=== PATIENT | male | born 1955 | race Caucasian/White ===

== ENCOUNTER 2021-02-21 20:44 | Inpatient (IN) ==
--- NOTE | 2021-02-21 21:12 | Emergency Department Note ---
SOB HPI General Chief Complaint: Shortness of Breath/Dyspnea Stated Complaint: SOB Time Seen by Provider: 02/21/21 20:57 Source: patient and EMS Mode of arrival: EMS Limitations: no limitations History of Present Illness HPI Narrative: 65-year-old male arrives via EMS chief and breath.Patient states he has had 12 days of fever chills body aches cough headache ; States he went to [facility] emergency department a week ago and was told he most likely had COVID-19 but was not tested. Patient has not felt better he saw a telemedicine doctor and was prescribed ivermectin couple days ago. Patient continues to feel very short of breath fatigue and very sleepy with no energy.EMS arrived the patient's was found to be hypoxic.Prior Denies history of heart or lung disease no hypertension or hyperlipidemia no history of thromboembolism.Patient was exposed to a family member that did test positive to coronavirus a few days prior to him becoming ill. Related Data Home Medications Medication Instructions Recorded Confirmed Zinc 02/21/21 bupropion HCl 150 mg PO QAM 02/21/21 02/21/21 ivermectin 02/21/21 Allergies Allergy/AdvReac Type Severity Reaction Status Date / Time Amoxicillin AdvReac Intermediate Verified 02/21/21 20:51 Review of Systems ROS ROS Narrative: Narrative: All systems ED: reviewed and negative except as stated. Constitutional: Reports as per HPI, fever, chills, weakness and sweats Eyes: Denies vision change Cardiovascular: Denies chest pain Respiratory: Reports shortness of breath and cough Gastrointestinal: Denies abdominal pain, vomiting and diarrhea Genitourinary: Denies dysuria, frequency, urgency and hematuria Musculoskeletal: Denies back pain and joint pain Integumentary: Denies rash Neurological: Denies headache and dizziness Psychiatric: Denies anxiety, suicidal thoughts and homicidal thoughts Endocrine: Denies polydipsia and polyuria Hematological/Lymphatic: Denies easy bleeding and easy bruising PFSH Narrative Patient History Narrative: Narrative: Medical/Surgical/Family History All Active Problems (Updated 02/21/21 @ 23:38 by Balbir Cantrell MD) COVID-19 (Acute) Hypoxemia (Acute) Social History Smoking Status: Never smoker Exam Narrative Narrative: Constitutional: Awake alert no acute distress well-nourished well- developed HEENT: Normocephalic, atraumatic PERRLA, EOMI, oral mucosa moist, pharynx clear, Neck: Supple, no lymphadenopathy, no JVD Lungs: Breathing unlabored, lungs clear Cardiac: Regular rate and rhythm, normal distal pulses, GI: Soft nontender nondistended no guarding no rebound Musculoskeletal: No tenderness, no deformities, no edema, full range of motion Neuro: Awake alert, cranial nerves II through XII grossly intact, no focal motor or sensory deficits Psychiatric: Normal mood and affect Skin: Warm dry no rash, cap refill less than 2 seconds General Limitations: no limitations Course Reevaluation(s) Reevaluation #1: Patient feels better maintaining oxygen saturation in the low 90s on 5 L. Discussed all ED results and recommendation for admission and he is agreeable. Time: 23:25 Consultations Consultation #1: This discussed with Dr. Cole, hospitalist who agrees to admit the patient to the hospital and he will see him in the morning. Time: 23:31 Vital Signs Vital signs: Vital Signs Temperature 97.6 F 02/21/21 20:45 Pulse Rate 70 02/21/21 20:45 Respiratory Rate 20 02/21/21 20:45 Blood Pressure 115/65 02/21/21 20:45 Pulse Oximetry (%) 90 02/21/21 20:45 Temperature 97.6 F 02/21/21 20:45 Pulse Rate 68 02/21/21 23:17 Respiratory Rate 20 02/21/21 20:45 Blood Pressure 110/61 02/21/21 23:17 Pulse Oximetry (%) 91 02/21/21 23:17 [facility] MDM Narrative Medical decision making narrative: 65-year-old male with shortness of breath fatigue worsening over the last 12 days. Is positive for COVID-19. CT chest with contrastshows bilateral infiltrates and patient is hypoxic. No evidence of pulmonary embolism. Patient will be admitted for further evaluation and treatment.Case discussed with hospitalist Dr. Cole who agrees to admit patient. He request patient be started on remdesivir and Decadron. Differential Diagnosis Differential Diagnosis: COVID-19 infection, pneumonia, pulmonary embolism, CHF Lab Data Lab results reviewed: Yes I reviewed the patient's lab results. Result diagrams: 02/21/21 21:28 02/21/21 21:27 Labs: Lab Results 02/21/21 02/21/21 02/21/21 Range/Units 21:27 21:27 21:27 WBC (4.5-11.0) K/mcL RBC (4.50-5.90) M/mcL Hgb (13.5-16.5) g/dL Hct (41.0-55.0) % MCV (80.0-100.0) fL MCH (26.0-34.0) pg MCHC (31.0-36.0) g/dL RDW (11.5-14.5) % Plt Count (140-440) K/mcL MPV (7.4-10.4) fL Seg Neutrophils % (38-78) % Band Neutrophils % (0-10) % Lymphocytes % (15-49) % Platelet Estimate (Normal) RBC Morphology (Normal) PT (11.9-14.5) sec INR (0.9-1.1) APTT (20.0-37.0) sec VBG Lactic Acid 2.0 (0.5-2.0) mmol/L POC Creatinine 1.3 H (0.6-1.2) mg/dL Troponin T < 0.01 (<0.03) ng/mL Procalcitonin (<0.10) ng/mL 02/21/21 02/21/21 02/21/21 Range/Units :27 21: 21:28 WBC 11.3 H (4.5-11.0) K/mcL RBC 4.59 (4.50-5.90) M/mcL Hgb 15.0 (13.5-16.5) g/dL Hct 44.9 (41.0-55.0) % MCV 97.8 (80.0-100.0) fL MCH 32.7 (26.0-34.0) pg MCHC 33.4 (31.0-36.0) g/dL RDW 12.7 (11.5-14.5) % Plt Count 134 L (140-440) K/mcL MPV 10.9 H (7.4-10.4) fL Seg Neutrophils % 93 H (38-78) % Band Neutrophils % 1 (0-10) % Lymphocytes % 6 L (15-49) % Platelet Estimate Decreased A (Normal) RBC Morphology Normal (Normal) PT 13.9 (11.9-14.5) sec INR 1.0 (0.9-1.1) APTT 32.9 (20.0-37.0) sec VBG Lactic Acid (0.5-2.0) mmol/L POC Creatinine (0.6-1.2) mg/dL Troponin T (<0.03) ng/mL Procalcitonin 0.88 H (<0.10) ng/mL ED POC Tests ED POC Tests: ABAD - SARS Antigen Positive Radiology Data Radiology results reviewed: Yes I reviewed the patient's radiology results. Radiology results narrative: CTA chest with contrast shows scattered infiltrates throughout both lower lung field and a portion of the posterior upper lungs, no effusion or pneumothorax, no pulmonary arterial emboli, there is fatty infiltration of the liver noted. EKG Data EKG #1: EKG attestation: Yes I reviewed and interpreted this EKG. and Yes There are no EKG findings of acute coronary syndrome EKG results narrative: EKG performed to 115 shows sinus rhythm rate of 66 first-degree AV block normal axis nonspecific ST changes no ectopy Discharge Plan Patient/Caregiver Discharge Instructions Pt seen by POWER BENDER OPERATOR/PA only: No Clinical Impression: COVID-19, Hypoxemia Patient Disposition: Xfer As Inpt ([facility]) Condition: Fair Follow up with: Allie Petty ARNP [Primary Care Provider] - Prescriptions: No Action bupropion HCl 150 mg Tablet Extended Release 24 Hr 150 mg PO QAM RF: 0 Zinc RF: 0 ivermectin RF: 0
[2021-02-21 21:42] LABS: POC Creatinine 1.3 mg/dL (0.6-1.2)
[2021-02-21 22:19] LABS: Hematocrit 44.9 % (41.0-55.0); Mean Cell Volume 97.8 fL (80.0-100.0); Mean Corpuscular HGB Conc 33.4 g/dL (31.0-36.0); Mean Platelet Volume 10.9 fL (7.4-10.4); Platelet Count 134 K/mcL (140-440); RBC 4.59 M/mcL (4.50-5.90); Red Cell Distribution Width 12.7 % (11.5-14.5); WBC 11.3 K/mcL (4.5-11.0)
[2021-02-21 22:30] LABS: Partial Thromboplastin Time 32.9 sec (20.0-37.0); Prothrombin Time 13.9 sec (11.9-14.5)
[2021-02-21 22:48] LABS: Band Neutrophils % 1 % (0-10); Lymphocytes % 6 % (15-49); Platelet Estimate DECREASED (Normal); RBC Morphology NORMAL (Normal); Segmented Neutrophils % 93 % (38-78)
[2021-02-21] MEDS ORDERED: REMDESIVIR 200 MG in 0.9 % SODIUM CHLORIDE 250 ML IV ONE (23:35)
[2021-02-21] MEDS ORDERED: DEXAMETHASONE 10 MG/ML VIAL IV ONE (23:35)
[2021-02-21] MEDS ORDERED: cefTRIAXone 2 GM in DEXTROSE 5% IN WATER 50 ML IV SCH (23:45)
[2021-02-21] MEDS ORDERED: AZITHROMYCIN 500 MG in DEXTROSE 5% IN WATER 250 ML IV SCH (23:45)
[2021-02-22 00:40] LABS: proBNP 294.4 pg/mL (<125.0)
[2021-02-22] MEDS ORDERED: cefTRIAXone 2 GM VIAL ONE (00:40)
[2021-02-22 00:41] LABS: ALT/SGPT 36 U/L (<40); AST/SGOT 59 U/L (<40); Albumin 2.9 gm/dL (3.2-5.2); Albumin/Globulin Ratio 0.8 (1.0-2.3); Alkaline Phosphatase 61 U/L (39-117); Bilirubin,Total 0.6 mg/dL (0.1-1.0); Blood Urea Nitrogen 29 mg/dL (8-23); Carbon Dioxide 24 mmol/L (22-30); Chloride 95 mmol/L (96-108); Globulin 3.8 gm/dL (2.2-3.7); Glomerular Filtration Rate 64; Glucose 103 mg/dL (70-105)
--- NOTE | 2021-02-22 07:19 | Internal Med History&Physical ---
HPI History of Present Illness Patient information: Note initiated : 02/22/21 at 7:13 am Service Date, if different from initiated Date: [] Patient: Doc Aguilar a 65 y/o M admitted on 02/22/21 for Shortness of breath. Chief Complaint: [] History of present illness: Mr. Aguilar is a 65 year old M Presents the ED with shortness of breath. He has been ill for 12 days. He was exposed to family member that had Covid and 7 days later started feeling ill. Went to [facility] not too long ago was told he probably had Covid but was not tested at that time. He has had significant fatigue and shortness of breath. When EMS arrived he had a sat of 69%. Tested and found to be positive for Covid he had a CT of the chest which showed bilateral infiltrates, no PE. Patient was on 5 L of nasal cannula in the ED.subsequently required high flow oxygen up to 10-15 liters on the floor. Review of Systems: Pertinent positives as above. Denies headache/fever/chills/nausea/vomiting/chest or abdominal pain/diarrhea. Remaining 10 point review of system reviewed negative PFSH PFSH All Active Problems (Updated 02/21/21 @ 23:38 by Balbir Cantrell MD) COVID-19 (Acute) Hypoxemia (Acute) MEDS/ALLERGIES Home Medications and Allergies Home Medications Medication Instructions Recorded Confirmed Type Zinc 02/21/21 History bupropion HCl 150 mg PO QAM 02/21/21 02/22/21 History ivermectin 02/21/21 History Allergies Allergy/AdvReac Type Severity Reaction Status Date / Time Amoxicillin AdvReac Intermediate Verified 02/21/21 20:51 EXAM Constitutional Vitals: Temp Pulse Resp BP Pulse Ox 97.6 F 81 24 H 129/82 100 02/22/21 03:18 02/22/21 03:18 02/22/21 04:23 02/22/21 03:18 02/22/21 04:23 DATA Data Completed and Pending Labs: Labs from last 24 hours 02/21/21 02/21/21 02/21/21 21:28 21:28 21:27 WBC 11.3 H RBC 4.59 Hgb 15.0 Hct 44.9 MCV 97.8 MCH 32.7 MCHC 33.4 RDW 12.7 Plt Count 134 L MPV 10.9 H Seg Neutrophils % 93 H Band Neutrophils % 1 Lymphocytes % 6 L Platelet Estimate Decreased A RBC Morphology Normal PT 13.9 INR 1.0 APTT 32.9 VBG Lactic Acid Sodium Potassium Chloride Carbon Dioxide Anion Gap BUN Creatinine POC Creatinine GFR Calculation Glucose Calcium Total Bilirubin AST ALT Alkaline Phosphatase Troponin T NT-Pro-B Natriuret Pep Total Protein Albumin Globulin Albumin/Globulin Ratio Procalcitonin 0.88 H 02/21/21 02/21/21 02/21/21 21:27 21:27 21:27 WBC RBC Hgb Hct MCV MCH MCHC RDW Plt Count MPV Seg Neutrophils % Band Neutrophils % Lymphocytes % Platelet Estimate RBC Morphology PT INR APTT VBG Lactic Acid 2.0 Sodium 133 Potassium 4.1 Chloride 95 L Carbon Dioxide 24 Anion Gap 14.0 BUN 29 H Creatinine 1.2 POC Creatinine 1.3 H GFR Calculation 64 Glucose 103 Calcium 9.0 Total Bilirubin 0.6 AST 59 H ALT 36 Alkaline Phosphatase 61 Troponin T < 0.01 NT-Pro-B Natriuret Pep 294.4 H Total Protein 6.7 Albumin 2.9 L Globulin 3.8 H Albumin/Globulin Ratio 0.8 L Procalcitonin A/P Narrative A/P Narrative: A: *Covid pneumonia with likely bacterial superinfection: -PCT elevated *Acute hypoxic respiratory failure w/ARDS: -requiring vapotherm at 60% *CKD : *Depression * P: -Dexamethasone/remdesivir -rocehpin/azithro, pending SC -O2 supplement, wean as able, bipap if needed -IS/Acapella, prn nebs -prone positioning - - -PT/OT -ppx: Lovenox bid daily Time Spent With Patient Time: Total time spent is greater than 50% in coordination of care (as doc umented) at patient's floor/unit and/or counseling patient:
--- NOTE | 2021-02-22 08:49 | Cat Scan Report ---
CLINICAL INFORMATION: Shortness of breath. Covid positive COMPARISON: None. TECHNIQUE: 80ml of Isovue-370 were injected intravenously. Using SmartPrep to maximize pulmonary artery opacification, .625mm helical slices were obtained from the lung apices through the lung bases. Following reconstruction, 2.5 mm sagittal, coronal, and axial reformations were processed. The exam was reviewed at mediastinal, lung, and bone windows. The exam was performed using radiation dose optimization techniques including, but not limited to, automated exposure control, adjustment of the mA and/or kV according to patient size and use of iterative reconstruction technique. FINDINGS: Mediastinal windows show the pulmonary arteries are normal diameter and well-opacified without evidence of embolus. Thoracic aorta is also well-opacified and normal diameter. A few borderline enlarged lymph nodes are seen in the lower mediastinum and hilum ranging up to 11 mm. These should represent benign reactive lymph nodes. The heart is normal in size configuration. No appreciable plaque in the coronary arteries. Esophagus is grossly normal. Thyroid is unremarkable. Pulmonary parenchymal windows show large patchy groundglass infiltrates disseminated throughout both upper, lower and right middle lobes with relative sparing of the anterior segments of both upper lobes and the anterior right middle lobe. There are no effusions. Bones and soft tissues are normal.Images through the upper abdomen show mild fatty change within the liver. Visualized kidneys, adrenal glands, pancreas and spleen are normal. IMPRESSION: 1. No evidence of pulmonary embolus. 2. Diffuse bilateral groundglass infiltrates. Suspect Covid pneumonia with Covid positivity. This could also represent non-Covid pneumonia or aspiration. Interpreted and Authenticated by: Willem Jones 02/22/21
[2021-02-22] MEDS ORDERED: POTASSIUM CHLORIDE 40 MEQ in DEXTROSE 5% IN WATER 500 ML IV PRN ×2 (08:53→11:54)
[2021-02-22] MEDS ORDERED: MAGNESIUM SULFATE 2 GM/50 ML BAG IV PRN ×2 (08:53→11:54)
[2021-02-22] MEDS ORDERED: ONDANSETRON 4 MG/2 ML VIAL IV PRN ×2 (08:53→11:54)
[2021-02-22] MEDS ORDERED: SENNOSIDES 1 TABLET PO PRN ×2 (08:53→11:54)
[2021-02-22] MEDS ORDERED: POTASSIUM CHLORIDE 20 MEQ TABLET PO PRN ×4 (08:53→11:54)
[2021-02-22] MEDS ORDERED: POLYETHYLENE GLYCOL 3350 17 GM PACKET PO PRN ×2 (08:58→11:54)
[2021-02-22] MEDS ORDERED: ACETAMINOPHEN 325 MG TABLET PO PRN ×2 (08:58→11:54)
[2021-02-22] MEDS ORDERED: IPRATROPIUM/ALBUTEROL 3 ML AMPUL.NEB NEB PRN ×2 (08:58→11:54)
[2021-02-22] MEDS ORDERED: ZINC SULFATE 50 MG CAPSULE PO SCH (09:00)
[2021-02-22] MEDS ORDERED: 0.9 % SODIUM CHLORIDE 1,000 ML IV SCH ×2 (09:00→11:54)
[2021-02-22] MEDS ORDERED: buPROPion 150 MG TAB.XL.24H PO SCH (09:00)
[2021-02-22] MEDS ORDERED: DOCUSATE SODIUM 100 MG CAPSULE PO SCH ×2 (09:00→21:00)
[2021-02-22] MEDS ORDERED: DEXAMETHASONE 4 MG TABLET PO SCH (09:05)
[2021-02-22] MEDS ORDERED: ENOXAPARIN 80 MG/0.8 ML SYRINGE SQ SCH ×2 (09:05→21:00)
[2021-02-22 10:48] LABS: INR 1.1 (0.9-1.1); Prothrombin Time 14.4 sec (11.9-14.5)
[2021-02-22 10:51] LABS: ALT/SGPT 41 U/L (<40); AST/SGOT 74 U/L (<40); Albumin 2.4 gm/dL (3.2-5.2); Albumin/Globulin Ratio 0.6 (1.0-2.3); Alkaline Phosphatase 70 U/L (39-117); Bilirubin,Direct < 0.2 mg/dL (0-0.3); Bilirubin,Total 0.4 mg/dL (0.1-1.0); Blood Urea Nitrogen 20 mg/dL (8-23); Calcium 8.8 mg/dL (8.6-10.4); Carbon Dioxide 25 mmol/L (22-30); Chloride 98 mmol/L (96-108); Globulin 4.2 gm/dL (2.2-3.7); Glomerular Filtration Rate 90; Glucose 120 mg/dL (70-105); Lactate Dehydrogenase 599 U/L (135-225); Phosphorous 2.8 mg/dL (2.5-4.5); Triglycerides 111 mg/dL (<150); Uric Acid 4.1 mg/dL (2.5-8.0)
[2021-02-22 10:52] LABS: C-Reactive Protein 19.9 mg/dL (0.03-0.80)
[2021-02-22] MEDS ORDERED: IPRATROPIUM/ALBUTEROL 3 ML AMPUL.NEB NEB SCH ×2 (13:00)
[2021-02-22] MEDS ORDERED: ONDANSETRON 4 MG/2 ML VIAL ONE (13:05)
[2021-02-22] MEDS ORDERED: ONDANSETRON 4 MG/2 ML VIAL IV ONE (13:13)
[2021-02-22] MEDS ORDERED: fentaNYL 100 MCG/2 ML VIAL IV ONE (13:14)
[2021-02-22] MEDS ORDERED: 0.9 % SODIUM CHLORIDE 10 ML SYRINGE IV SCH ×2 (14:00)
[2021-02-22] MEDS ORDERED: SUCCINYLCHOLINE 20 MG/ML ML IV ONE (14:30)
[2021-02-22] MEDS ORDERED: MIDAZOLAM 5 MG/5 ML VIAL IV ONE ×2 (14:45→17:29)
--- NOTE | 2021-02-22 14:57 | Procedure Note ---
PROC Intubation Time out performed: Yes Date of Procedure: 02/22/21 Sedative: Fentanyl Paralytic: Succinylcholine ETT: ETCO2 Laryngoscope: 3 Assist device used: glide ET tube size: 7.5 # of Attempts: 1 Patient tolerated procedure: well Intubation complications: none Additional comments: stat cxr ordered
[2021-02-22] MEDS ORDERED: fentaNYL 100 MCG/2 ML VIAL IV PRN (14:59)
[2021-02-22] MEDS ORDERED: PROPOFOL 1,000 MG in PREMIX 1 BAG IV SCH (15:00)
[2021-02-22] MEDS ORDERED: HEPARIN/NS 500 ML IV SCH (15:00)
[2021-02-22] MEDS ORDERED: PROPOFOL 100 ML IV ONE (15:09)
--- NOTE | 2021-02-22 15:30 | XRay Report ---
CLINICAL INFORMATION: endotracheal tube placement verification COMPARISON: Chest CT 02/21/2021. FINDINGS: The heart is borderline enlarged. Mediastinum unremarkable. Endotracheal tip is high-12 cm above the duke. Pulmonary vessels unremarkable. Moderate patchy infiltrates throughout both lungs, are unchanged from CT. No effusion IMPRESSION: Moderate patchy infiltrates throughout both lungs-unchanged. Endotracheal tip is high well-circumscribed the duke. ICU was instructed to advance the tube 7 cm Interpreted and Authenticated by: Willem Jones 02/22/21
--- NOTE | 2021-02-22 15:58 | Transfer Summary ---
Discharge Provider Provider Patient information: Note initiated : 02/22/21 at 3:56 pm Service Date, if different from initiated Date: [] Patient: Doc Aguilar 65 y/o M admitted on 02/22/21 for Shortness of breath. Chief Complaint: [] Date of admission: 02/22/21 00:25 Discharge date: 02/22/21 Primary care physician: Allie Petty Consults: 02/21/21 Consult to Physician [CONS] Stat Comment: Consulting Provider: Steven Cole Reason For Exam: Physician to Consult Discharge Meds Discharge Medications Home Medications bupropion HCl 150 mg PO QAM 02/21/21 [History Confirmed 02/22/21 Last Taken 02/21/21 12:00] COURSE Hospital Course Hospital course: History of present illness: Mr. Aguilar is a 65 year old M Presents the ED with shortness of breath. He has been ill for 12 days. He was exposed to family member that had Covid and 7 days later started feeling ill. Went to [facility] not too long ago was told he probably had Covid but was not tested at that time. He has had significant fatigue and shortness of breath. When EMS arrived he had a sat of 69%. Tested and found to be positive for Covid he had a CT of the chest which showed bilateral infiltrates, no PE. Patient was on 5 L of nasal cannula in the ED.subsequently required high flow oxygen up to 10-15 liters on the floor. *patient initially on 5L NC then oxymask to high flow at 15L and subsequently vapotherm with fio2 60-90%. He did not seem to make much improvement so placed on bipap at 60% fio2 but PaO2 had dropped further to 54. Discussed with his likely need for intubation and transfer to higher care facility. Patient intubated for declining respiratory status. Discussed case with film crew member at [facility] Dr. Bean, who graciously excepted patient. Will work on transfer up to use [facility]. A: *Covid pneumonia with possible bacterial superinfection: -PCT elevated *Acute hypoxic respiratory failure w/ARDS: -requiring vapotherm at 60% *mild BRUNO on ?CKD II: improved *Depression Discharge diagnosis: Acute hypoxic respite failure with ARDS Covid pneumonia Time Spent with Patient Time attestation: Total time spent providing and/or coordinating discharge services: Time spent: Greater than 30 minutes EXAM Constitutional Vitals: Temp Pulse Resp BP Pulse Ox 99.3 F H 69 28 H 100/53 89 L 02/22/21 07:00 02/22/21 11:52 02/22/21 11:52 02/22/21 11:29 02/22/21 11:52 Discharge Data Data Completed and Pending Labs on day of discharge: Labs from last 24 hours 02/22/21 02/22/21 02/22/21 09:23 09:23 09:23 WBC RBC Hgb Hct MCV MCH MCHC RDW Plt Count MPV Seg Neutrophils % Band Neutrophils % Lymphocytes % Platelet Estimate RBC Morphology PT INR APTT D-Dimer VBG Lactic Acid Sodium 135 Potassium 4.8 Chloride 98 Carbon Dioxide 25 Anion Gap 12.0 BUN 20 Creatinine 0.9 POC Creatinine GFR Calculation 90 Glucose 120 H Uric Acid 4.1 Calcium 8.8 Phosphorus 2.8 Magnesium 2.0 Ferritin 4018.0 H Total Bilirubin 0.4 Direct Bilirubin < 0.2 GGT 32 AST 74 H ALT 41 H Alkaline Phosphatase 70 Lactate Dehydrogenase 599 H Total Creatine Kinase 103 Troponin T C-Reactive Protein 19.90 H NT-Pro-B Natriuret Pep Total Protein 6.6 Albumin 2.4 L Globulin 4.2 H Albumin/Globulin Ratio 0.6 L Triglycerides 111 Procalcitonin 02/22/21 02/21/21 02/21/21 09:23 21:28 21:28 WBC 11.3 H RBC 4.59 Hgb 15.0 Hct 44.9 MCV 97.8 MCH 32.7 MCHC 33.4 RDW 12.7 Plt Count 134 L MPV 10.9 H Seg Neutrophils % 93 H Band Neutrophils % 1 Lymphocytes % 6 L Platelet Estimate Decreased A RBC Morphology Normal PT 14.4 13.9 INR 1.1 1.0 APTT 32.9 D-Dimer 1.61 H VBG Lactic Acid Sodium Potassium Chloride Carbon Dioxide Anion Gap BUN Creatinine POC Creatinine GFR Calculation Glucose Uric Acid Calcium Phosphorus Magnesium Ferritin Total Bilirubin Direct Bilirubin GGT AST ALT Alkaline Phosphatase Lactate Dehydrogenase Total Creatine Kinase Troponin T C-Reactive Protein NT-Pro-B Natriuret Pep Total Protein Albumin Globulin Albumin/Globulin Ratio Triglycerides Procalcitonin 02/21/21 02/21/21 02/21/21 21:27 21:27 21:27 WBC RBC Hgb Hct MCV MCH MCHC RDW Plt Count MPV Seg Neutrophils % Band Neutrophils % Lymphocytes % Platelet Estimate RBC Morphology PT INR APTT D-Dimer VBG Lactic Acid 2.0 Sodium Potassium Chloride Carbon Dioxide Anion Gap BUN Creatinine POC Creatinine GFR Calculation Glucose Uric Acid Calcium Phosphorus Magnesium Ferritin Total Bilirubin Direct Bilirubin GGT AST ALT Alkaline Phosphatase Lactate Dehydrogenase Total Creatine Kinase Troponin T < 0.01 C-Reactive Protein NT-Pro-B Natriuret Pep Total Protein Albumin Globulin Albumin/Globulin Ratio Triglycerides Procalcitonin 0.88 H 02/21/21 21:27 WBC RBC Hgb Hct MCV MCH MCHC RDW Plt Count MPV Seg Neutrophils % Band Neutrophils % Lymphocytes % Platelet Estimate RBC Morphology PT INR APTT D-Dimer VBG Lactic Acid Sodium 133 Potassium 4.1 Chloride 95 L Carbon Dioxide 24 Anion Gap 14.0 BUN 29 H Creatinine 1.2 POC Creatinine 1.3 H GFR Calculation 64 Glucose 103 Uric Acid Calcium 9.0 Phosphorus Magnesium Ferritin Total Bilirubin 0.6 Direct Bilirubin GGT AST 59 H ALT 36 Alkaline Phosphatase 61 Lactate Dehydrogenase Total Creatine Kinase Troponin T C-Reactive Protein NT-Pro-B Natriuret Pep 294.4 H Total Protein 6.7 Albumin 2.9 L Globulin 3.8 H Albumin/Globulin Ratio 0.8 L Triglycerides Procalcitonin Discharge Plan Patient/Caregiver Discharge Instructions Prescriptions: No Action bupropion HCl 150 mg Tablet Extended Release 24 Hr 150 mg PO QAM RF: 0 Follow Up Plan Follow up with: Allie Petty ARNP [Primary Care Provider] - [facility] Prognosis: Undetermined Overall status at discharge: patient is not back to baseline Discharge Orders: Discharge Order (Routine); Ordered 02/22/21 Ordered By: Steven Cole
[2021-02-22] MEDS ORDERED: AZITHROMYCIN 500 MG in DEXTROSE 5% IN WATER 250 ML IV SCH (16:00)
--- NOTE | 2021-02-22 16:06 | XRay Report ---
CLINICAL INFORMATION: tube placement COMPARISON: 02/22/2021 1454 hours FINDINGS: Endotracheal tip is now 4.9 cm above the duke in satisfactory position. Heart size is normal for technique. Mediastinum and pulmonary vessels are unremarkable. Moderate patchy infiltrates throughout both lungs are unchanged. No effusions IMPRESSION: No change in moderate bilateral infiltrates. Endotracheal tube now in satisfactory position 4.9 cm above the duke Interpreted and Authenticated by: Willem Jones 02/22/21
[2021-02-22] MEDS ORDERED: REMDESIVIR 100 MG in 0.9 % SODIUM CHLORIDE 250 ML IV SCH (17:00)
[2021-02-22] MEDS ORDERED: ROCURONIUM 10 MG/ML ML IV ONE (17:29)
[2021-02-22] MEDS ORDERED: cefTRIAXone 2 GM in DEXTROSE 5% IN WATER 50 ML IV SCH (18:00)
[2021-02-22] MEDS ORDERED: FAMOTIDINE/PF 20 MG/2 ML VIAL IV SCH (21:00)
[2021-02-22] MEDS ORDERED: CHLORHEXIDINE GLUCONATE 1 ML ORAL.SOL SWABMOUTH SCH (21:00)
[2021-02-23] MEDS ORDERED: buPROPion 150 MG TAB.XL.24H PO SCH (09:00)
[2021-02-23] MEDS ORDERED: ZINC SULFATE 50 MG CAPSULE PO SCH (09:00)
[2021-02-23] MEDS ORDERED: DEXAMETHASONE 4 MG TABLET PO SCH (09:00)
== END 2021-02-22 17:30 | disposition short-term general hospital (02) | DRG 208 ==
LOC: ED 20:44 → ICU 02-22 00:20
PROVIDERS: ADMIT Internal Medicine; ATTEND Internal Medicine